=== PATIENT | male | born 1970 | race Caucasian/White ===

== ENCOUNTER 2021-11-13 16:43 | Observation (INO) ==
[2021-11-13] MEDS ORDERED: ASPIRIN CHEW 81 MG TABLET PO STA (17:49)
[2021-11-13 18:06] LABS: Basophils % 0.2 % (0.0-0.8); Eosinophils # 0.1 10*3/uL (0.0-0.87); Eosinophils % 1.4 % (0.00-10.9); Hematocrit 34.4 VOL% (42.0-52.0); Hemoglobin 11.1 GM/DL (14.0-18.0); Immature Granulocytes % 0.5 %; Immature Granulocytes Absolute 0.02 #; Lymphocytes # 1.2 10*3/uL (1.4-4.0); Lymphocytes % 28.2 % (21.2-54.2); Mean Corpuscular HGB Conc 32.3 GM/DL (32-36); Mean Corpuscular Volume 81.9 FL (87-102); Mean Platelet Volume 9.4 FL (9.6-12.0); Monocytes % 7.9 % (1.7-12.7); Neutrophils % 61.8 % (38.7-73.9); Platelet Count 144 T/CUMM (130-400); Red Cell Distribution Width 14.6 % (9.3-17.3); White Blood Count 4.3 T/CUMM (4-12)
[2021-11-13 18:09] LABS: Albumin 4.2 G/DL (3.4-5.0); Bilirubin,Total 0.4 MG/DL (0.20-1.00); Calcium 9.4 MG/DL (8.5-10.1); Osmolality,Calculated 274.8 MOS/KG (273-304); Potassium 3.1 MMOL/L (3.5-5.1); Total Protein 7.8 G/DL (6.4-8.2)
[2021-11-13 18:14] LABS: PT Patient Result 11.6 SECS (10.5-12.0); Partial Thromboplastin Time 29.5 SECS (23.8-32.1)
[2021-11-13] MEDS ORDERED: ENOXAPARIN 100 MG/ML SYRINGE SUBCUT STA (18:23)
[2021-11-13] MEDS ORDERED: MORPHINE 2 MG/1 ML SYRINGE IV STA (18:23)
[2021-11-13] MEDS ORDERED: METOPROLOL TARTRATE 5 MG/5 ML VIAL IV STA (18:23)
[2021-11-13] MEDS ORDERED: PROMETHAZINE 25 MG/1 ML VIAL IM STA (18:23)
[2021-11-13] MEDS ORDERED: DEXTROSE 50% 25 GM/50 ML SYRINGE IV PRN (18:34)
[2021-11-13] MEDS ORDERED: ACETAMINOPHEN 325 MG TABLET PO PRN (18:34)
[2021-11-13] MEDS ORDERED: MORPHINE 2 MG/1 ML SYRINGE IV PRN (18:34)
[2021-11-13] MEDS ORDERED: GLUCAGON 1 MG VIAL IM PRN (18:34)
[2021-11-13] MEDS ORDERED: POTASSIUM CHLORIDE 20 MEQ TABLET PO STA (18:38)
[2021-11-13] MEDS ORDERED: POTASSIUM CHLORIDE 20 MEQ TABLET PO PRN (18:41)
[2021-11-13] MEDS: MORPHINE 2 MG/1 ML SYRINGE IV PRN (23:24)
[2021-11-14] MEDS: MORPHINE 2 MG/1 ML SYRINGE IV PRN ×4 (05:31→22:19)
[2021-11-14] MEDS: PROMETHAZINE 25 MG/1 ML VIAL IM PRN ×2 (07:03→13:50)
[2021-11-14 07:12] LABS: Basophils % 0.3 % (0.0-0.8); Eosinophils # 0.1 10*3/uL (0.0-0.87); Eosinophils % 1.5 % (0.00-10.9); Hematocrit 35.2 VOL% (42.0-52.0); Hemoglobin 11.1 GM/DL (14.0-18.0); Immature Granulocytes % 0.3 %; Immature Granulocytes Absolute 0.01 #; Lymphocytes # 1.1 10*3/uL (1.4-4.0); Lymphocytes % 34.1 % (21.2-54.2); Mean Corpuscular HGB Conc 31.5 GM/DL (32-36); Mean Corpuscular Volume 82.8 FL (87-102); Mean Platelet Volume 10.3 FL (9.6-12.0); Monocytes % 10.6 % (1.7-12.7); Neutrophils % 53.2 % (38.7-73.9); Platelet Count 112 T/CUMM (130-400); Red Blood Count 4.25 MC/CUMM (3.8-5.5); Red Cell Distribution Width 14.8 % (9.3-17.3); White Blood Count 3.3 T/CUMM (4-12)
[2021-11-14] MEDS: LEVOTHYROXINE 125 MCG TABLET PO SCH (07:23)
[2021-11-14 07:30] LABS: Alanine Aminotransferase 10 U/L (16-61); Albumin 3.7 G/DL (3.4-5.0); Alkaline Phosphatase 66 U/L (45-117); Aspartate Amino Transferase 16 U/L (0-37); Bilirubin,Total < 0.39 MG/DL (0.20-1.00); Blood Urea Nitrogen 13 MG/DL (7-18); Calcium 9.1 MG/DL (8.5-10.1); Carbon Dioxide 27 MMOL/L (21-32); Estimated Glom Filtration Rate 84 ML/MIN; Glucose 82 MG/DL (74-106); HDL Cholesterol 51 MG/DL (40-60); Osmolality,Calculated 273.7 MOS/KG (273-304); Potassium 3.1 MMOL/L (3.5-5.1); Risk Ratio 3.69; Sodium 138 MMOL/L (136-145); Triglycerides 88 MG/DL (2-150); VLDL Cholesterol 17.6 MG/DL
[2021-11-14] MEDS: PANTOPRAZOLE 40 MG TABLET PO SCH (08:50)
[2021-11-14] MEDS ORDERED: METOPROLOL TARTRATE 50 MG TABLET PO SCH (09:00)
[2021-11-14] MEDS ORDERED: ASPIRIN 325 MG TABLET PO SCH (09:00)
[2021-11-14] MEDS ORDERED: ENOXAPARIN 80 MG/0.8 ML SYRINGE SUBCUT SCH (09:00)
[2021-11-14] MEDS ORDERED: POTASSIUM CHLORIDE RIDER 10 MEQ/100 ML PREMIX IV PRN (09:02)
[2021-11-14] MEDS ORDERED: MAGNESIUM SULF RIDER 2 GM/50 ML PREMIX IV PRN (09:02)
[2021-11-14] MEDS: SODIUM CHLORIDE 0.9% 1,000 ML IV SCH ×2 (09:15→17:14)
[2021-11-14] MEDS ORDERED: LIDOCAINE 1% 20 ML VIAL ONE (09:48)
[2021-11-14] MEDS ORDERED: MIDAZOLAM 2 MG/2 ML VIAL ONE (09:48)
[2021-11-14] MEDS ORDERED: fentaNYL 100 MCG/2 ML VIAL ONE (09:49)
[2021-11-14] MEDS ORDERED: DIAZEPAM 5 MG TABLET PO ONE (10:00)
[2021-11-14] MEDS ORDERED: diphenhydrAMINE CAP 50 MG CAPSULE PO ONE (10:00)
[2021-11-14] MEDS ORDERED: ATORVASTATIN 40 MG TABLET PO SCH (21:00)
[2021-11-14] MEDS ORDERED: SERTRALINE 25 MG TABLET PO SCH (21:00)
[2021-11-14] MEDS: METOPROLOL SUCCINATE XL 50 MG TABLET PO SCH (22:19)
[2021-11-15] MEDS: SODIUM CHLORIDE 0.9% 1,000 ML IV SCH (02:39)
[2021-11-15] MEDS: MORPHINE 2 MG/1 ML SYRINGE IV PRN ×2 (03:39→09:02)
[2021-11-15] MEDS: LEVOTHYROXINE 125 MCG TABLET PO SCH (06:22)
[2021-11-15 08:49] VITALS: BP 120/78
[2021-11-15] MEDS: PANTOPRAZOLE 40 MG TABLET PO SCH (08:58)
[2021-11-15] MEDS: METOPROLOL SUCCINATE XL 50 MG TABLET PO SCH (08:58)
[2021-11-15] MEDS ORDERED: ASPIRIN EC 81 MG TABLET PO SCH (09:00)
[2021-11-15] MEDS ORDERED: POTASSIUM CHLORIDE 20 MEQ TABLET PO ONE (09:00)
== END 2021-11-15 15:45 | disposition left against medical advice (07) ==
LOC: N.EDINP 16:43 → N.ED 16:43 → N.TELES 22:14
PROVIDERS: ADMIT Hospitalist; ATTEND Hospitalist
PROC: CLCCHCL (ICD-10-PCS; 2021-11-14 10:15)